=== PATIENT | male | born 2000 | race Caucasian/White ===

== ENCOUNTER 2024-03-31 14:42 | Emergency (ER) | payer OTHER, SELFPAY ==
[2024-03-31 14:44] VITALS: BP 159/97; PULSE 55; RESP 16; TEMP 36.7; O2SAT 97; BMI 27.1
--- NOTE | 2024-03-31 15:10 | EDS_ITS ---
HPI History of Present Illness Chief Complaint: Back Informant: patient and spouse/S.O. Narrative Narrative: ` 23-year-old male presenting to the emergency room with intermittent low back pain x 2 years. Patient states that he has been in and out of the emergency room during that timeframe and he keeps hoping that someone will do something for him but they keep giving him pills and sending him home. Patient states in the 2 years she has never followed up with anybody out of the emergency department. He states that the pain starts in the mid low back and radiates down both legs. He denies any loss of sensation, muscle strength, changes in bowel or bladder control fevers night sweats IV drug use immunosuppression history of cancer or trauma. Patient states that he does not do much physical activity. He works in fast food. He notes the pain radiates posteriorly into the bilateral feet/toes. No specific toe. He denies rashes. PFSH PFSH Medical History no medical history no medical history Home Medications ?Medication ?Instructions ?Recorded ?Last Taken ?Type cyclobenzaprine 10 mg tablet 10 mg PO TID PRN Muscle Spasm #15 03/31/24 Unknown Rx TABLETS ibuprofen 600 mg tablet 600 mg PO Q6H PRN PRN pain #20 03/31/24 Unknown Rx TABLETS Allergy/AdvReac Type Severity Reaction Status Date / Time No Known Allergies Allergy Verified 03/31/24 14:43 Social History (Updated 03/31/24 @ 15:[address] Taz Grimaldo, DO) Smoking Status: Never smoker ROS ROS ED Constitutional Constitutional ED: Denies chills, fever(s), sweats or weight loss Eyes Eyes: Denies change in vision or diplopia ENT ENT ED: Denies ear pain, rhinorrhea or sore throat Cardiovascular Cardiovascular: Denies chest pain, orthopnea, palpitations or racing heartbeat Respiratory/Chest Respiratory/Chest: Denies cough, dyspnea or orthopnea Gastrointestinal Gastrointestinal: Denies abdominal pain, diarrhea, nausea or vomiting Genitourinary Genitourinary ED: Denies dysuria, hematuria or urinary frequency Musculoskeletal Musculoskeletal: Reports back pain; Denies arthralgias, myalgias or neck pain Integumentary Denies abscess or rash Neurologic Neurologic: Denies headache(s), paresthesias or weakness Psychiatric Psychiatric: Denies anxiety, depression, suicidal ideation or suicidal thoughts Endocrine Endocrinology: Denies polydipsia, polyphagia or polyuria Allergic/Immunologic Allergic/Immunologic ED: Denies mouth swelling, tongue swelling or urticaria EXAM Physical Exam Const Vital Signs: 03/31/24 14:44 Temperature 98.1 F Temperature Source Temporal Pulse Rate 55 L Respiratory Rate 16 Blood Pressure 159/97 H Blood Pressure Mean 117 Pulse Ox 97 Oxygen Delivery Method Room Air Positive well nourished and well developed General Appearance ED: well developed HEENT Reports normocephalic, head/scalp atraumatic and moist mucous membranes Eyes PERRL and EOMs intact bilaterally Neck no lymphadenopathy, supple and no JVD Resp normal respiratory effort and clear to auscultation bilaterally Cardio regular rate, regular rhythm and no murmurs GI normal to inspection, nondistended, normoactive bowel sounds and non-tender Palpation: soft Back/Spine no CVA tenderness and normal ROM Back/Spine Narrative: Patient points to the L3-L4 area as the region that hurts. He notes TTP in the lumbar paraspinal tissues. There are no tissue texture changes to suggest underlying infection. No rashes. No sciatic notch TTP. Patient easily sits forward for exam Extremity normal to inspection General Extremety ED: Negative for edema General Extremity: Negative for edema Neuro oriented x3, CN's II-XII intact bilaterally and no sensory deficits noted Sensorium / Orientation: alert Motor Exam: strength 5/5 throughout Deep Tendon Reflexes: Rt Patellar (L4): 2+, Lt Patellar (L4): 2+, Rt Ankle (S1): 2+ and Lt Ankle (S1): 2+ Deep Tendon Reflexes Back: Rt Patellar (L4): 2+, Lt Patellar (L4): 2+, Rt Ankle (S1): 2+ and Lt Ankle (S1): 2+ Psych mental status grossly normal Mood & Affect: Negative for depressed or tearful Skin no rashes or lesions noted and no wounds MDM MDM MDM Narrative Medical decision making narrative: Differential diagnosis includes but not limited to degenerative disc disease degenerative joint disease lumbar radiculopathy muscle spasm epidural spinal abscesses spondylolisthesis spondylolysis cauda equina spinal stenosis Patient is neurologically intact with no evidence of trauma. Has not had prior imaging. CT of the lumbar spine was obtained which demonstrates straightening of the normal lordosis.. Please see radiologist read. I spoke with the patient. I think is most likely due to biomechanics rather than a fixed structural issue. We talked about stretching and doing at least twice weekly yoga for the lower back. Talked about anti-inflammatories and muscle relaxants. He needs to establish primary care. He was advised he may need physical therapy as an outpatient. He was advised he may go on to require a MRI but at this time I do not see an obvious need for MRI as he is neurologically intact and does not have any acute neurologic deficits or findings that would be suspect this just for a need for an MRI emergently. Patient notes understanding of the plan. Resources were given. History & Record Review Discussion w/independent historian: Patient and Significant other Lab Data Attestation: I reviewed the patient's lab results. Radiography Diagnostic Testing: Clinical Impression(s) from Imaging Studies Lumbar Spine CT 03/31/24 15:10 IMPRESSION: Loss of the normal lumbar lordosis. Electronically Signed: Davin Lopez MD at 15:34 EDT , Discharge Plan Triage Chief Complaint: Back ED Provider: Taz Grimaldo Dx/Rx/DC Orders Clinical Impression: Low back pain, Acute left lumbar radiculopathy Instructions: ED Back Exercises, Lumbar, ED Back Pain (Acute or Chronic), ED Sciatica Prescriptions: New cyclobenzaprine 10 mg tablet 10 mg PO TID PRN (Reason: Muscle Spasm) Qty: 15 0RF ibuprofen 600 mg tablet 600 mg PO Q6H PRN PRN (Reason: pain) Qty: 20 0RF Primary Care Provider: Care Physician,No Primary Referrals: Bob Sandoval DO [Med Staff - Active Staff] - As Needed (for back surgery) Rosana Mathias [Non-Staff] - As soon as possible (for primary care if you do not have health insurance) Care Physician,No Primary [Primary Care Provider] - Print Language: Upper Sorbian Disposition Disposition: Home, Self Care
--- NOTE | 2024-03-31 15:10 | CT_ITS ---
STUDY: CT LUMBAR SPINE WITHOUT CONTRAST REASON FOR EXAM: Male, 23 years old. Low back pain. No known injury. RADIATION DOSAGE (If Supplied By Facility): CTDIvol = ( 17.56 ) mGy, DLP = ( 584.74 ) mGycm TECHNIQUE: The patient was scanned in a multi detector CT scanner. High resolution transaxial imaging was performed. Images were obtained from to . Sagittal and coronal images were reconstructed. Individualized dose optimization techniques were used for this CT. COMPARISON: None FINDINGS: There is straightening of the normal lumbar lordosis. There is no substantial scoliosis. Normal vertebrae of the lumbar spine. L1-2: Normal endplates. Normal disc height and morphology. Normal bilateral facet joints. Normal central canal and bilateral lateral recesses. Normal bilateral intervertebral neural foramina. L2-3: Normal endplates. Normal disc height and morphology. Normal bilateral facet joints. Normal central canal and bilateral lateral recesses. Normal bilateral intervertebral neural foramina. L3-4: Normal endplates. Normal disc height and morphology. Normal bilateral facet joints. Normal central canal and bilateral lateral recesses. Normal bilateral intervertebral neural foramina. L4-5: Normal endplates. Normal disc height and morphology. Normal bilateral facet joints. Normal central canal and bilateral lateral recesses. Normal bilateral intervertebral neural foramina. L5-S1: Normal endplates. Normal disc height and morphology. Normal bilateral facet joints. Normal central canal and bilateral lateral recesses. Normal bilateral intervertebral neural foramina. Normal visualized paraspinous soft tissue structures. Small retroperitoneal lymph nodes. CT/Spine Lumbar without Contrast IMPRESSION: Loss of the normal lumbar lordosis. Electronically Signed: Davin Lopez MD at 15:34 EDT ,
== END 2024-03-31 16:12 | disposition home or self-care (01) ==
PROVIDERS: Emergency Provider Emergency Medicine; Visit Provider Emergency Medicine
DX: M54.16 Radiculopathy, lumbar region (principal); M54.50 Low back pain, unspecified
CPT/HCPCS: 72131; 99282